=== PATIENT | male | born 1950 | race Caucasian/White ===

== ENCOUNTER 2019-04-09 07:23 | Emergency (ER) | payer MEDICARE, MEDICAID, SELFPAY ==
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
[2019-04-09 07:33] VITALS: BP 136/86; PULSE 77; RESP 18; TEMP 36.2; O2SAT 98; BMI 21.7
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
[2019-04-09] MEDS: BACITRACIN OINT 0.9 GM PCKT 1 APPLIC TOP (08:47)
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
== END 2019-04-09 10:20 | disposition home or self-care (01) ==
PROVIDERS: Emergency Provider Emergency Medicine
DX: S00.81XA Abrasion of other part of head, initial encounter (principal); S60.519A Abrasion of unspecified hand, initial encounter; W22.8XXA Striking against or struck by other objects, initial encounter
CPT/HCPCS: 70450; 99283; 99284

== ENCOUNTER 2021-01-12 19:48 | Emergency (ER) | payer MEDICARE, MEDICAID, SELFPAY ==
[2021-01-12 19:51] VITALS: BP 170/94; PULSE 88; RESP 18; TEMP 36.7; O2SAT 99
--- NOTE | 2021-01-12 23:03 | ED_ITS ---
HPI - Skin/Abscess/Foreign Bdy General Chief complaint: Skin/Abscess/Foreign Body Stated complaint: states infection on left side of face Time Seen by Provider: 01/12/21 23:03 Source: patient Mode of arrival: Ambulatory Limitations: no limitations History of Present Illness HPI narrative: This is a 70-year-old male comes emergency department complaint infection left side of his face. Patient has had swelling and increasing pain with a raised central lesion for the past 3 days. Patient states quite tender. He has had no fevers. He denies any other systemic symptoms. He denies any swelling of his airway, neck, tongue or in her airway. Patient states he has not any nausea or vomiting he has not any chest pain or shortness of breath. Does not have any pain radiating to his neck. Patient does have a camp. He has not had similar changes on his skin in this area in the past. Patient does not have any known medical issues but has not followed with regularly. He denies any known allergies. He denies any surgeries. He states his last primary care physician has since . Related Data Previous Rx's Medication Instructions Recorded doxycycline hyclate 100 mg PO BID #20 cap 01/12/21 Allergies Allergy/AdvReac Type Severity Reaction Status Date / Time No Known Drug Allergies Allergy Verified 04/09/19 07:32 Review of Systems Review of Systems ROS Unobtainable: All systems reviewed & are unremarkable except as noted in HPI and below Patient History Surgical History H/O craniotomy Social History Smoking Status: Current every day smoker alcohol intake: current Smoking Status: Current every day smoker alcohol intake frequency: 3 or more drinks per day Substance Use Type: does not use Exam Narrative Exam Narrative: GEN: Elderly appearing male, alert and oriented x 3, patient appears to be in mild distress. HEENT: Atraumatic, pupils are equal round reactive to light, extraocular movements are intact, nares are clear, TMs are clear with no fluid, there is no conjunctival pallor. Throat is clear without any exudates, erythema, tonsillar enlargement or uvular deviation, patient has erythema over about a 4 cm semi circular area of the left cheek with a central raised area that has an erythematous center with surrounding white bring a. There is no fluctuance the entire area is indurated and tender and warm. Patient does have some swelling into the tragus. He does not have any swelling into the lower mandible. Patient does have a fear that area on the central location is within the hair follicles of the camp. HEART: Regular rate and rhythm without murmur, clicks, rubs. LUNGS:Lungs clear to auscultation, no wheezes, rales, crackles, chest moves symmetrically ABD:bowel sounds normal, soft, non-tender, no guarding, rebound, rigidity, no masses noted, no hepatosplenomegaly MSCL: full range of motion, normal gait NEURO:CN 2-12 intact, sensation normal Initial Vital Signs Initial Vital Signs: Vital Signs Temperature 98.0 F 01/12/21 19:51 Pulse Rate 88 01/12/21 19:51 Respiratory Rate 18 01/12/21 19:51 Blood Pressure 170/94 H 01/12/21 19:51 Pulse Oximetry 99 01/12/21 19:51 Course Orders Ordered: Discontinued Medications Doxycycline Hyclate (Doxycycline Hyclate 100 Mg Tablet) 100 mg PO NOW ONE Stop: 01/12/21 23:14 Last Admin: 01/12/21 23:34 Dose: 100 mg Documented by: ALEXIS Tramadol HCl (Tramadol 50 Mg Prepack) 1 bottle MISC SEEINSTR ONE Stop: 01/12/21 23:14 Last Admin: 01/12/21 23:34 Dose: 1 bottle Documented by: ALEXIS Vital Signs Vital signs: Vital Signs - 8 hr 01/12/21 19:51 Temperature 98.0 F Pulse Rate 88 Respiratory Rate 18 Blood Pressure 170/94 H Pulse Oximetry 99 [facility] - Skin/Abscess/Foreign Bdy Imaging Data Bedside ultrasound: Attestation: I personally reviewed and interpreted this imaging study as follows: My Impression: Bedside ultrasound does not show fluid collection. There is some cobblestoning. [facility] Narrative Medical decision making narrative: Patient started on oral antibiotics with 1st dose given here. Return precautions were discussed. No signs of septic changes with labs or vitals patient feels comfortable with this plan. Discharge Plan Departure Patient Disposition: Home Clinical Impression: Cellulitis of face Instructions: DI for Cellulitis -- Adult Activity Restrictions/Additional Instructions: Follow up in the next 48-72 hours if you are not having any improvement. Take antibiotics until they are completely gone. You may take Tylenol and/or Ibuprofen as needed. If this is inadequate you may take pain medication as prescribed. Medication make you sleepy do not drive, perform hazardous activities or make any major decisions while taking it. Prescription was sent to [facility] in [place] Please return for fevers greater 100.4 F, rapidly worsening swelling in your face, airway, throat, neck or tongue increasing pain lightheadedness or passing out, persistent vomiting, or other new or concerning symptoms. Prescriptions: New doxycycline hyclate 100 mg capsule 100 mg PO BID Qty: 20 RF: 0
[2021-01-12] MEDS: TRAMADOL 50 MG PREPACK 1 BOTTLE MISC (23:34)
[2021-01-12] MEDS: DOXYCYCLINE HYCLATE 100 MG TABLET PO (23:34)
== END 2021-01-12 23:38 | disposition home or self-care (01) ==
PROVIDERS: Emergency Provider Emergency Medicine
DX: L03.211 Cellulitis of face (principal)
CPT/HCPCS: 99283

== ENCOUNTER 2021-04-09 21:03 | Emergency (ER) | payer MEDICARE, MEDICAID, SELFPAY ==
--- NOTE | 2021-04-09 21:13 | DI.RAD.S_ITS ---
PROCEDURE: XR CHEST 1V INDICATIONS: suspected sepsis TECHNIQUE: One view of the chest was acquired. COMPARISON: None. FINDINGS: Surgical changes and devices: None. Lungs and pleura: Lungs are clear. No pleural effusions or pneumothorax. Mediastinum: Mediastinal contours appear normal. Heart size is normal. Bones and chest wall: No suspicious bony lesions. Overlying soft tissues appear unremarkable. IMPRESSION: No evidence acute pulmonary process. Dictated by: Greg Murcia M.D. on 04/09/2021 at 21:48 Approved by: Greg Murcia M.D. on 04/09/2021 at 21:48
[2021-04-09 21:15] VITALS: BP 175/107; PULSE 98; RESP 20; TEMP 36.9; O2SAT 100; BMI 21.1
--- NOTE | 2021-04-09 21:40 | PC.NURSE ---
PT helped to get undressed, able to move around the bed without help. Pt was a moderate amount stool in pants, brown, normal ordor. Pericare performed, pt placed in gown, warm blankets provided.
[2021-04-09 21:53] LABS: COVID19 -Nasal RAPID Negative (Negative)
[2021-04-09] MEDS: SODIUM CHLORIDE 0.9% 1,000 ML 1000 ML IV (21:55)
[2021-04-09] MEDS: ONDANSETRON 4 MG/2 ML INJ IV (21:56)
[2021-04-09 22:00] LABS: Add Manual Diff / Slide Review NO; Basophils Absolute Auto 100 /uL (0-100); Basophils Percent Auto 0.6 % (0-2); Eosinophils Absolute Auto 0 /uL (0-450); Eosinophils Percent Auto 0.2 % (2-4); Hematocrit 51.4 % (41-53); Hemoglobin 17.1 g/dL (13.5-17.5); Lymphocytes Absolute Auto 800 /uL (1100-4500); Lymphocytes Percent Auto 5.5 % (25-40); Mean Corpuscular HGB Conc 33.3 % (30-36); Mean Corpuscular Hemoglobin 31.7 PG (26-34); Monocytes Absolute Auto 700 /uL (0-900); Monocytes Percent Auto 4.4 % (3-14); Neutrophils Absolute Auto 13500 /uL (1500-7000); Neutrophils Percent Auto 89.3 % (50-75); Platelet Count 202 X10^3/uL (150-400); Red Blood Cell Count 5.41 X10^6/uL (4.5-5.9); Red Cell Distribution Width 15.8 % (11.6-14.8); White Blood Cell Count 15.1 X10^3/uL (4.5-11.0)
[2021-04-09 22:09] LABS: Albumin 4.5 g/dL (3.5-5.0); Albumin Globulin Ratio 1.1 (1.0-2.8); Alkaline Phosphatase 86 U/L (38-126); Aspartate Aminotransferase 31 IU/L (17-59); BUN Creatinine Ratio 17.6 (6-22); Bilirubin Total 0.8 mg/dL (0.2-1.3); Blood Urea Nitrogen 22 mg/dL (9-20); Calcium 10.6 mg/dL (8.4-10.2); Carbon Dioxide 22 mmol/L (22-32); Chloride 108 mmol/L (98-107); Creatine Kinase 113 U/L (55-170); Estimated Glomerular Filt Rate 57.3 mL/min (>60); Glucose 100 mg/dL (80-110); HEMOLYSIS 39 (0-50); Lipase 54 U/L (23-300); Magnesium 1.9 mg/dL (1.6-2.3); Potassium 4.2 mmol/L (3.4-5.1); Sodium 144 mmol/L (137-145); Total Protein 8.5 g/dL (6.3-8.2)
[2021-04-09 22:16] LABS: Alanine Aminotransferase 20 IU/L (<50)
[2021-04-09 22:18] VITALS: BP 143/86; PULSE 86; RESP 16; O2SAT 98
[2021-04-09 22:21] LABS: Troponin I 0.052 ng/mL (0.01-0.034)
[2021-04-09 22:24] LABS: CKMB % Relative Index 2.9 % (1.5-5.0); Creatine Kinase MB 3.31 ng/mL (<2.37)
[2021-04-09 22:25] LABS: Lactate (Lactic Acid) 3.9 mmol/L (0.7-2.1)
[2021-04-09 22:26] LABS: Procalcitonin 0.08 ng/mL (<0.5)
--- NOTE | 2021-04-09 22:43 | ED.GENADULT ---
HPI - General Adult General Chief complaint: Weakness Stated complaint: General Weakness Time Seen by Provider: 04/09/21 22:08 Source: patient and EMS Mode of arrival: EMS Limitations: no limitations History of Present Illness HPI narrative: Patient is a 71-year-old male who is brought in by EMS for evaluation of full was initially described as generalized weakness. He states that he was at his normal state health earlier today. This afternoon he [place] when he suddenly became very fatigued. He described as a chill sensation. He had no chest pain. No shortness of breath. No abdominal pain. No nausea vomiting. No urinary symptoms. No skin changes. No constipation or diarrhea. By the time he arrived here in the emergency department and by my evaluation he states that he felt much better however nursing staff in triage states that he was somewhat ?mottled ?in appearance and also shaking. Related Data Previous Rx's Medication Instructions Recorded doxycycline hyclate 100 mg capsule 100 mg PO BID #20 cap 01/12/21 Allergies Allergy/AdvReac Type Severity Reaction Status Date / Time No Known Drug Allergies Allergy Verified 04/09/19 07:32 Review of Systems Constitutional Constitutional: Reports chills, Reports fatigue, Denies fever(s), Reports lethargy and Reports malaise Eyes Eyes: Reports system reviewed and no additional complaints, except as documented ENT Ears, Nose, Mouth, and Throat: Denies vertigo, Denies dizziness and Denies sore throat Cardiovascular Cardiovascular: Denies chest pain, Reports lightheadedness and Denies dyspnea Respiratory Respiratory: Denies cough and Denies dyspnea Gastrointestinal Gastrointestinal: Reports system reviewed and no additional complaints, except as documented Genitourinary Genitourinary: Reports system reviewed and no additional complaints, except as documented Musculoskeletal Musculoskeletal: Denies myalgias Integumentary/Breasts Skin/Breast: Reports system reviewed and no additional complaints, except as documented Neurologic Neurologic: Reports system reviewed and no additional complaints, except as documented, Denies vertigo and Denies dizziness Psychiatric Psychiatric: Reports system reviewed and no additional complaints, except as documented Endocrine Endocrine: Reports fatigue Hematologic/Lymphatic On Anticoagulants: No Allergic/Immunologic Allergic/Immunologic: Reports system reviewed and no additional complaints, except as documented Patient History Medical History Patient denies medical problems Surgical History H/O craniotomy Social History Smoking Status: Current every day smoker alcohol intake: current Smoking Status: Current every day smoker alcohol intake frequency: 3 or more drinks per day Substance Use Type: does not use Exam Initial Vital Signs Initial Vital Signs: Vital Signs Temperature 98.5 F 04/09/21 21:15 Pulse Rate 98 H 04/09/21 21:15 Respiratory Rate 20 04/09/21 21:15 Blood Pressure 175/107 H 04/09/21 21:15 Pulse Oximetry 100 04/09/21 21:15 Const General: cooperative, healthy appearing and comfortable HENMT Head: normal to inspection and normocephalic Eyes General: appearance normal, both eyes and all related structures Resp Effort & Inspection: normal respiratory effort Auscultation: clear to auscultation bilaterally Cardio Rate: regular rate Rhythm: regular rhythm Heart Sounds: no murmurs GI Inspection: normal to inspection Palpation: soft Back/Spine/Pelvis Back: normal to inspection Skin General: no rashes or lesions noted Neuro General: patient alert, patient awake, patient oriented x3 and moves all extremities Extrem General: normal to inspection and capillary refill normal Psych Appearance: grossly normal and disheveled Course Orders Ordered: ED Orders 04/09/21 21:13 XR chest 1V Stat Blood Culture Stat EKG-12 Lead Stat RT Consult Eval and Treat Now 04/09/21 21:35 COVID19 -Nasal swab/Pre-Proc Stat 04/09/21 21:50 Complete Blood Count AUTO DIFF Stat Comprehensive Metabolic Panel Stat Lipase Stat MAG [Magnesium] Stat Procalcitonin Stat Troponin & CK Cardiac Panel Stat 04/09/21 22:10 Lactate (Lactic Acid) Stat 04/09/21 23:00 Urine Microscopic Stat 04/10/21 00:05 XR hip w pel if done LT 2V Stat 04/10/21 00:15 C-Reactive Protein Quant Stat Troponin & CK Cardiac Panel Stat 04/10/21 01:04 Partial Thromboplastin Time Stat 04/10/21 01:26 Erythrocyte Sedimentation Rate Stat Urine Drug Screen, Rapid Stat 04/10/21 05:00 Hemoglobin and Hematocrit DAILY 04/10/21 07:15 PTT [Partial Thromboplastin Time] Q6H 04/10/21 13:15 PTT [Partial Thromboplastin Time] Q6H 04/10/21 19:15 PTT [Partial Thromboplastin Time] Q6H 04/11/21 05:00 Hemoglobin and Hematocrit DAILY Heparin Sodium/Dextrose (Heparin Drip) 25,000 unit in 500 mls @ 17.418 mls/hr IV CONT LELIA; Protocol Last Admin: 04/10/21 01:17 Dose: 12 units/kg/hr, 17.418 mls/hr Documented by: MANAN Discontinued Medications Aspirin (Aspirin 81 Mg Chew Tab) 324 mg PO NOW ONE Stop: 04/10/21 01:05 Last Admin: 04/10/21 01:17 Dose: 324 mg Documented by: MANAN Heparin Sodium (Porcine) (Heparin 5,000 Unit/Ml Vial) 4,000 unit IV NOW ONE Stop: 04/10/21 01:05 Last Admin: 04/10/21 01:16 Dose: 4,000 unit Documented by: MANAN Hydromorphone HCl (Hydromorphone 0.5 Mg Inj) 0.5 mg IV NOW ONE Stop: 04/10/21 00:06 Last Admin: 04/10/21 00:13 Dose: 0.5 mg Documented by: SOHAIL Hydromorphone HCl (Hydromorphone 0.5 Mg Inj) 0.5 mg IV NOW ONE Stop: 04/10/21 00:26 Last Admin: 04/10/21 00:31 Dose: 0.5 mg Documented by: SOHAIL Sodium Chloride (Normal Saline 0.9%) 1,000 mls @ 1,000 mls/hr IV BOLUS ONE Stop: 04/09/21 22:12 Last Infusion: 04/10/21 00:23 Dose: 0 mls/hr Documented by: Admin: 04/09/21 21:55 Dose: 1,000 mls/hr Documented by: DALLAS Ceftriaxone Sodium 1,000 mg/ (Sodium Chloride) 100 mls @ 200 mls/hr IV NOW ONE Stop: 04/09/21 23:06 Last Infusion: 04/10/21 00:23 Dose: 0 mls/hr Documented by: Admin: 04/09/21 23:00 Dose: 200 mls/hr Documented by: SOHAIL Ondansetron HCl (Ondansetron 4 Mg/2 Ml Inj) 4 mg IV NOW ONE Stop: 04/09/21 21:14 Last Admin: 04/09/21 21:56 Dose: 4 mg Documented by: D[place]AS Vital Signs Vital signs: Vital Signs - 8 hr 04/09/21 21:15 04/09/21 22:18 04/09/21 23:03 Temperature 98.5 F Pulse Rate 98 H 86 95 H Respiratory Rate 20 16 18 Blood Pressure 175/107 H 143/86 H 200/83 H Pulse Oximetry 100 98 98 04/10/21 01:08 04/10/21 01:45 04/10/21 02:30 Temperature Pulse Rate 84 84 80 Respiratory Rate 20 20 18 Blood Pressure 162/98 H 188/94 H 196/95 H Pulse Oximetry 95 97 97 04/10/21 03:03 Temperature Pulse Rate 90 Respiratory Rate 18 Blood Pressure 161/79 H Pulse Oximetry 97 Medical Decision Making Lab Data Lab results reviewed: Yes I reviewed the patient's lab results. Result diagrams: 04/09/21 21:50 04/09/21 21:50 Labs: Lab Results 04/09/21 04/09/21 04/09/21 Range/Units 21:35 21:50 21:50 WBC 15.1 H (4.5-11.0) X10^3/uL RBC 5.41 (4.5-5.9) X10^6/uL Hgb 17.1 (13.5-17.5) g/dL Hct 51.4 (41-53) % MCV 95.0 (80-100) fL MCH 31.7 (26-34) PG MCHC 33.3 (30-36) % RDW 15.8 H (11.6-14.8) % Plt Count 202 (150-400) X10^3/uL Neut % (Auto) 89.3 H (50-75) % Lymph % (Auto) 5.5 L (25-40) % [place] % (Auto) 4.4 (3-14) % Eos % (Auto) 0.2 L (2-4) % Baso % (Auto) 0.6 (0-2) % Neut # (Auto) 08509 H (0632-9189) /uL Lymph # (Auto) 800 L (9044-4535) /uL [place] # (Auto) 700 (0-900) /uL Eos # (Auto) 0 (0-450) /uL Baso # (Auto) 100 (0-100) /uL ESR (0-15) MM/HR APTT (26.4-36.2) SECONDS Sodium 144 (137-145) mmol/L Potassium 4.2 (3.4-5.1) mmol/L Chloride 108 H (98-107) mmol/L Carbon Dioxide 22 (22-32) mmol/L BUN 22 H (9-20) mg/dL Creatinine 1.25 (0.66-1.25) mg/dL Estimated GFR 57.3 L (>60) mL/min BUN/Creatinine Ratio 17.6 (6-22) Glucose 100 (80-110) mg/dL Lactate (0.7-2.1) mmol/L Calcium 10.6 H (8.4-10.2) mg/dL Magnesium (1.6-2.3) mg/dL Total Bilirubin 0.8 (0.2-1.3) mg/dL AST 31 (17-59) IU/L ALT 20 (<50) IU/L Alkaline Phosphatase 86 (38-126) U/L Total Creatine Kinase (55-170) U/L CK-MB (CK-2) (<2.37) ng/mL CK-MB (CK-2) Rel Index (1.5-5.0) % Troponin I (0.01-0.034) ng/mL C-Reactive Protein (<1.0) mg/dL Total Protein 8.5 H (6.3-8.2) g/dL Albumin 4.5 (3.5-5.0) g/dL Globulin 4.0 (1.7-4.1) g/dL Albumin/Globulin Ratio 1.1 (1.0-2.8) Lipase 54 (23-300) U/L Procalcitonin 0.08 (<0.5) ng/mL Urine RBC (0-5/HPF) Urine WBC (0-5/HPF) Urine Bacteria (None) Hyaline Casts (None) Urine Mucus (Negative) Ur Culture Indicated? U Opiates 300ng/mL cut (Negative) Ur Oxycodone Screen (Negative) Urine Methadone Screen (Negative) Ur Barbiturates Screen (Negative) U Tricyclic Antidepress (Negative) Ur Phencyclidine Scrn (Negative) Ur Amphetamines Screen (Negative) U Methamphetamines Scrn (Negative) Ur MDMA Scrn (Ecstasy) (Negative) U Benzodiazepines Scrn (Negative) Urine Cocaine Screen (Negative) U Marijuana (THC) Screen (Negative) SARS-CoV-2 (PCR) Negative (Negative) 04/09/21 04/09/21 04/09/21 Range/Units 21:50 21:50 22:10 WBC (4.5-11.0) X10^3/uL RBC (4.5-5.9) X10^6/uL Hgb (13.5-17.5) g/dL Hct (41-53) % MCV (80-100) fL MCH (26-34) PG MCHC (30-36) % RDW (11.6-14.8) % Plt Count (150-400) X10^3/uL Neut % (Auto) (50-75) % Lymph % (Auto) (25-40) % [place] % (Auto) (3-14) % Eos % (Auto) (2-4) % Baso % (Auto) (0-2) % Neut # (Auto) (1216-5359) /uL Lymph # (Auto) (9650-7747) /uL [place] # (Auto) (0-900) /uL Eos # (Auto) (0-450) /uL Baso # (Auto) (0-100) /uL ESR 2 (0-15) MM/HR APTT (26.4-36.2) SECONDS Sodium (137-145) mmol/L Potassium (3.4-5.1) mmol/L Chloride (98-107) mmol/L Carbon Dioxide (22-32) mmol/L BUN (9-20) mg/dL Creatinine (0.66-1.25) mg/dL Estimated GFR (>60) mL/min BUN/Creatinine Ratio (6-22) Glucose (80-110) mg/dL Lactate 3.9 H (0.7-2.1) mmol/L Calcium (8.4-10.2) mg/dL Magnesium 1.9 (1.6-2.3) mg/dL Total Bilirubin (0.2-1.3) mg/dL AST (17-59) IU/L ALT (<50) IU/L Alkaline Phosphatase (38-126) U/L Total Creatine Kinase 113 (55-170) U/L CK-MB (CK-2) 3.31 H (<2.37) ng/mL CK-MB (CK-2) Rel Index 2.9 (1.5-5.0) % Troponin I 0.052 H (0.01-0.034) ng/mL C-Reactive Protein (<1.0) mg/dL Total Protein (6.3-8.2) g/dL Albumin (3.5-5.0) g/dL Globulin (1.7-4.1) g/dL Albumin/Globulin Ratio (1.0-2.8) Lipase (23-300) U/L Procalcitonin (<0.5) ng/mL Urine RBC (0-5/HPF) Urine WBC (0-5/HPF) Urine Bacteria (None) Hyaline Casts (None) Urine Mucus (Negative) Ur Culture Indicated? U Opiates 300ng/mL cut (Negative) Ur Oxycodone Screen (Negative) Urine Methadone Screen (Negative) Ur Barbiturates Screen (Negative) U Tricyclic Antidepress (Negative) Ur Phencyclidine Scrn (Negative) Ur Amphetamines Screen (Negative) U Methamphetamines Scrn (Negative) Ur MDMA Scrn (Ecstasy) (Negative) U Benzodiazepines Scrn (Negative) Urine Cocaine Screen (Negative) U Marijuana (THC) Screen (Negative) SARS-CoV-2 (PCR) (Negative) 04/09/21 04/09/21 04/09/21 Range/Units 22:10 23:00 23:00 WBC (4.5-11.0) X10^3/uL RBC (4.5-5.9) X10^6/uL Hgb (13.5-17.5) g/dL Hct (41-53) % MCV (80-100) fL MCH (26-34) PG MCHC (30-36) % RDW (11.6-14.8) % Plt Count (150-400) X10^3/uL Neut % (Auto) (50-75) % Lymph % (Auto) (25-40) % [place] % (Auto) (3-14) % Eos % (Auto) (2-4) % Baso % (Auto) (0-2) % Neut # (Auto) (9118-9091) /uL Lymph # (Auto) (3863-5655) /uL [place] # (Auto) (0-900) /uL Eos # (Auto) (0-450) /uL Baso # (Auto) (0-100) /uL ESR (0-15) MM/HR APTT 25 L (26.4-36.2) SECONDS Sodium (137-145) mmol/L Potassium (3.4-5.1) mmol/L Chloride (98-107) mmol/L Carbon Dioxide (22-32) mmol/L BUN (9-20) mg/dL Creatinine (0.66-1.25) mg/dL Estimated GFR (>60) mL/min BUN/Creatinine Ratio (6-22) Glucose (80-110) mg/dL Lactate (0.7-2.1) mmol/L Calcium (8.4-10.2) mg/dL Magnesium (1.6-2.3) mg/dL Total Bilirubin (0.2-1.3) mg/dL AST (17-59) IU/L ALT (<50) IU/L Alkaline Phosphatase (38-126) U/L Total Creatine Kinase (55-170) U/L CK-MB (CK-2) (<2.37) ng/mL CK-MB (CK-2) Rel Index (1.5-5.0) % Troponin I (0.01-0.034) ng/mL C-Reactive Protein (<1.0) mg/dL Total Protein (6.3-8.2) g/dL Albumin (3.5-5.0) g/dL Globulin (1.7-4.1) g/dL Albumin/Globulin Ratio (1.0-2.8) Lipase (23-300) U/L Procalcitonin (<0.5) ng/mL Urine RBC 5-10/hpf H (0-5/HPF) Urine WBC 1-5/hpf (0-5/HPF) Urine Bacteria None seen (None) Hyaline Casts 0-1/lpf (None) Urine Mucus 1+ H (Negative) Ur Culture Indicated? Cult not indicated U Opiates 300ng/mL cut Negative (Negative) Ur Oxycodone Screen Negative (Negative) Urine Methadone Screen Negative (Negative) Ur Barbiturates Screen Negative (Negative) U Tricyclic Antidepress Negative (Negative) Ur Phencyclidine Scrn Negative (Negative) Ur Amphetamines Screen Negative (Negative) U Methamphetamines Scrn Negative (Negative) Ur MDMA Scrn (Ecstasy) Negative (Negative) U Benzodiazepines Scrn Negative (Negative) Urine Cocaine Screen Negative (Negative) U Marijuana (THC) Screen Negative (Negative) SARS-CoV-2 (PCR) (Negative) 04/10/21 04/10/21 04/10/21 Range/Units 00:15 00:15 00:15 WBC (4.5-11.0) X10^3/uL RBC (4.5-5.9) X10^6/uL Hgb (13.5-17.5) g/dL Hct (41-53) % MCV (80-100) fL MCH (26-34) PG MCHC (30-36) % RDW (11.6-14.8) % Plt Count (150-400) X10^3/uL Neut % (Auto) (50-75) % Lymph % (Auto) (25-40) % [place] % (Auto) (3-14) % Eos % (Auto) (2-4) % Baso % (Auto) (0-2) % Neut # (Auto) (7679-7729) /uL Lymph # (Auto) (2321-7652) /uL [place] # (Auto) (0-900) /uL Eos # (Auto) (0-450) /uL Baso # (Auto) (0-100) /uL ESR (0-15) MM/HR APTT (26.4-36.2) SECONDS Sodium (137-145) mmol/L Potassium (3.4-5.1) mmol/L Chloride (98-107) mmol/L Carbon Dioxide (22-32) mmol/L BUN (9-20) mg/dL Creatinine (0.66-1.25) mg/dL Estimated GFR (>60) mL/min BUN/Creatinine Ratio (6-22) Glucose (80-110) mg/dL Lactate 1.2 (0.7-2.1) mmol/L Calcium (8.4-10.2) mg/dL Magnesium (1.6-2.3) mg/dL Total Bilirubin (0.2-1.3) mg/dL AST (17-59) IU/L ALT (<50) IU/L Alkaline Phosphatase (38-126) U/L Total Creatine Kinase 108 (55-170) U/L CK-MB (CK-2) 3.87 H (<2.37) ng/mL CK-MB (CK-2) Rel Index 3.6 (1.5-5.0) % Troponin I 0.160 H* (0.01-0.034) ng/mL C-Reactive Protein 0.8 (<1.0) mg/dL Total Protein (6.3-8.2) g/dL Albumin (3.5-5.0) g/dL Globulin (1.7-4.1) g/dL Albumin/Globulin Ratio (1.0-2.8) Lipase (23-300) U/L Procalcitonin (<0.5) ng/mL Urine RBC (0-5/HPF) Urine WBC (0-5/HPF) Urine Bacteria (None) Hyaline Casts (None) Urine Mucus (Negative) Ur Culture Indicated? U Opiates 300ng/mL cut (Negative) Ur Oxycodone Screen (Negative) Urine Methadone Screen (Negative) Ur Barbiturates Screen (Negative) U Tricyclic Antidepress (Negative) Ur Phencyclidine Scrn (Negative) Ur Amphetamines Screen (Negative) U Methamphetamines Scrn (Negative) Ur MDMA Scrn (Ecstasy) (Negative) U Benzodiazepines Scrn (Negative) Urine Cocaine Screen (Negative) U Marijuana (THC) Screen (Negative) SARS-CoV-2 (PCR) (Negative) Urine Dip Bedside Urine Glucose Negative Bedside Urine Bilirubin - Negative Bedside Urine Ketone - Negative Urine Specific [place] 1.020 Bedside Urine Occult Blood +++ Bedside Urine pH 6.0 Bedside Urine Protein +/- 15 Bedside Urine Urobilinogen +/- 1mg Bedside Urine Nitrite - Negative Bedside Urine Leukocytes - Negative Esterase Point of care testing: Urine Dip Bedside Urine Glucose Negative Bedside Urine Bilirubin - Negative Bedside Urine Ketone - Negative Urine Specific [place] 1.020 Bedside Urine Occult Blood +++ Bedside Urine pH 6.0 Bedside Urine Protein +/- 15 Bedside Urine Urobilinogen +/- 1mg Bedside Urine Nitrite - Negative Bedside Urine Leukocytes - Negative Esterase Imaging Data Chest x-ray: Radiologist's Impression: [address] [id number] ReportSigned Patient: Perez Eagle LMR#: [id number]: [id number]/Sex: 71 / MDate of Service: 04/09/21Loc: EDAccession Number: [id number] Procedure: XR chest 1V Ordering Provider: Jan Mcbride D.O. PROCEDURE: XR CHEST 1V INDICATIONS: suspected sepsis TECHNIQUE: One view of the chest was acquired. COMPARISON: None. FINDINGS: Surgical changes and devices: None. Lungs and pleura: Lungs are clear. No pleural effusions or pneumothorax. Mediastinum: Mediastinal contours appear normal. Heart size is normal. Bones and chest wall: No suspicious bony lesions. Overlying soft tissues appear unremarkable. IMPRESSION: No evidence acute pulmonary process. Dictated by: Greg Murcia M.D. on 04/09/2021 at 21:48 Approved by: Greg Murcia M.D. on 04/09/2021 at 21:48 Extremity x-ray #1: Radiologist's Impression: Three views of the pelvis and hips No acute findings ECG Data Attestation: I personally reviewed and interpreted this ECG as follows: Interpretation: Sinus rhythm Ventricular rate 86 Occasional PVC LVH Normal QRS Normal QTC Nonspecific ST T wave changes MDM Narrative Medical decision making narrative: Patient initially arrived with fairly vague symptoms. He describes a sudden onset of a chill. He was afebrile but was somewhat tachycardic upon arrival. This improved. He did have a leukocytosis and elevated lactate with a repeat being normal and a normal procalcitonin. There was no specific source of infection found. He had no skin changes. Had no cough. Had a normal chest x-ray. Has no urinary symptoms and has a normal urinary tract infection. He denied IV drug use. I did consider endocarditis however he has a normal cardiovascular exam. His initial troponin was slightly elevated and repeat was even higher. At that point he was started on heparin. Was also given aspirin. Blood cultures were obtained upon arrival he was also given antibiotics. Urine culture also obtained. Patient is nontoxic appearing. Has nonspecific changes on his EKG. During his entire stay he had no chest pain or shortness of breath. I did discuss the case with Dr. Mario hospitalist at [facility] who accepts the patient in transfer for further evaluation treatment. I did discuss his lab findings and also the need for transfer with the patient. He expressed understanding. He is stable for transport. X-ray of his hip was ordered because the patient was complaining of hip discomfort. His son states that he has fractured his hip in the past. There is no reports of any new trauma. His hip x-ray is unremarkable. Critical Care Time Critical Care Time Critical Care Time: Yes Total Critical Care Time: 35 Attestation: The high probability of a clinically significant, sudden or life threatening deterioration of the cardiovascular system(s) required my full and direct attention, intervention and personal management. The aggregate critical care time was 35 minutes. This time is in addition to time spent performing reported procedures but includes the following: [X] Data Review and interpretation [X] Patient assessment and monitoring of vital signs [X] Documentation [X] Medication orders and management Discharge Plan Departure Patient Disposition: [facility] Clinical Impression: Non-ST elevation RI (NSTEMI) Prescriptions: No Action doxycycline hyclate 100 mg capsule 100 mg PO BID Qty: 20 RF: 0
[2021-04-09] MEDS: cefTRIAXone 1,000 MG in SODIUM CHLORIDE 0.9% 100 ML 200 ML IV (23:00)
[2021-04-09 23:03] VITALS: BP 200/83; PULSE 95; RESP 18; O2SAT 98
[2021-04-09 23:13] LABS: Bacteria Urine None Seen
[2021-04-09 23:25] LABS: Culture Indicated Urine Cult Not Indicated; Hyaline Casts Urine 0-1/LPF; Mucus Urine 1+ (Negative); RBC Urine 5-10/HPF (0-5/HPF); WBC Urine 1-5/HPF (0-5/HPF)
--- NOTE | 2021-04-10 00:05 | DI.RAD.S_ITS ---
PROCEDURE: XR HIP W PEL IF DONE LT 2V INDICATIONS: hip pain TECHNIQUE: AP pelvis with lateral view(s) of the left hip(s). COMPARISON: None. FINDINGS: Bones: No acute fractures or dislocations. Status post ORIF of proximal right femur fracture. Pelvic ring appears intact. No suspicious bony lesions. Mild bilateral hip osteoarthritis. Soft tissues: The visualized bowel gas pattern is normal. No suspicious soft tissue calcifications. IMPRESSION: No fracture. No acute osseous lesion. If symptoms and/or clinical suspicion for pathology persists, further assessment with repeat radiographs (7-10 days) or advanced imaging (e.g. CT, MRI or bone scan) should be considered. Dictated by: Huyen Setvens MD, PhD on 04/10/2021 at 8:59 Approved by: Huyen Stevens MD, PhD on 04/10/2021 at 9:00
[2021-04-10 00:13] LABS: Reflexed Lactate in 2 Hours Y
[2021-04-10] MEDS: HYDROMORPHONE 0.5 MG INJ IV ×2 (00:13→00:31)
[2021-04-10 00:31] LABS: Lactate 2HR (Lactic Acid Rflx) 1.2 mmol/L (0.7-2.1)
[2021-04-10 00:33] LABS: Creatine Kinase 108 U/L (55-170)
[2021-04-10 00:48] LABS: CKMB % Relative Index 3.6 % (1.5-5.0); Creatine Kinase MB 3.87 ng/mL (<2.37)
[2021-04-10 01:08] VITALS: BP 162/98; PULSE 84; RESP 20; O2SAT 95
[2021-04-10 01:16] LABS: PTT Partial Thromboplastin Tim 25 SECONDS (26.4-36.2)
[2021-04-10] MEDS: HEPARIN 5,000 UNIT/ML VIAL 4000 UNIT IV (01:16)
[2021-04-10] MEDS: ASPIRIN 81 MG CHEW TAB 324 MG PO (01:17)
[2021-04-10] MEDS: HEPARIN DRIP 25,000 UNIT/500 ML IV.SOLN 17.418 UNIT IV (01:17)
[2021-04-10 01:45] VITALS: BP 188/94; PULSE 84; RESP 20; O2SAT 97
[2021-04-10 01:45] LABS: C-Reactive Protein Quant 0.8 mg/dL (<1.0)
[2021-04-10 01:55] LABS: UR Morphine/Opiate cutoff 300 Negative (Negative); Ur Creatinine 50 (Normal); Ur Specific Gravity 1.025 (Normal); Urine Amphetamines Negative (Negative); Urine Barbiturates Negative (Negative); Urine Benzodiazepines Negative (Negative); Urine Cocaine Negative (Negative); Urine MDMA Negative (Negative); Urine Methadone Negative (Negative); Urine Methamphetamines Negative (Negative); Urine Oxycodone Negative (Negative); Urine Phencyclidine Negative (Negative); Urine Tetrahydrocannabinol Negative (Negative); Urine Tricyclic Antidepressant Negative (Negative); Urine pH 5 (Normal)
[2021-04-10 01:59] LABS: Erythrocyte Sedimentation Rate 2 MM/HR (0-15)
[2021-04-10 02:30] VITALS: BP 196/95; PULSE 80; RESP 18; O2SAT 97
[2021-04-10 03:03] VITALS: BP 161/79; PULSE 90; RESP 18; O2SAT 97
--- NOTE | 2021-04-10 03:57 | PC.NURSE ---
pain free,sr on cm with occasional pvc,heparin gtt infusing at 17 ml per hour.
--- NOTE | 2021-04-10 03:58 | PC.NURSE ---
He has been slightly confused tonight,oriented to person and place.
--- NOTE | 2021-04-10 04:07 | PC.NURSE ---
Report given to Elizabeth DOWNS at [facility].
== END 2021-04-10 04:08 | disposition short-term general hospital (02) ==
PROVIDERS: Emergency Provider Emergency Medicine
DX: I21.4 Non-ST elevation (NSTEMI) myocardial infarction (principal); Z20.822 Contact with and (suspected) exposure to COVID-19
CPT/HCPCS: 36415; 71045; 73502; 80053; 80305; 81003; 81015; 82550; 82553; 83605; 83690; 83735; 84145; 84484; 85025; 85651; 85730; 86140; 87040; 87635; 93005; 96361; 96365; 96366; 96367; 96375; 99284; 99291; C9803; J0696; J1170; J1644; J2405